=== PATIENT | female | born 1940 | race Hispanic/Latino ===

== ENCOUNTER 2025-01-11 10:05 | Day surgery (SDC) | payer MEDICARE ==
[~2025-01-11] VITALS: Ht 152.4 cm; Wt 65.8 kg
[2025-01-11] VITALS (9 sets, daily range): BP systolic 111–162; BP diastolic 45–65; PULSE 60–94; RESP 11–22; TEMP 96.7–97.3
--- NOTE | 2025-01-11 10:36 | EKG ---
[facility] Test Date: 2025-01-11 Test Time: 10:34:25 Pat Name: BAR ESCALONA Department: [facility] Room: [facility] 14 Gender: F Applications Support Engineer: [id number] : 1940 Requested By: CHARLES HA Order Number: [id number] Reading MD: Mojgan Arora Measurements Intervals Sparks Rate: 75 P: 0 VA: 0 QRS: -66 QRSD: 164 T: 112 QT: 420 QTc: 469 Interpretive Statements Ventricular paced rhythm Left axis deviation Left bundle branch block Compared to ECG 05/27/2022 14:56:02 Left-axis deviation now present Sinus bradycardia no longer present First degree AV block no longer present Electronically Signed On 01-11-2025 10:57:09 CDT by Mojgan Arora Please click the below link to view image of tracing.
[2025-01-11 10:48] LABS: APPEARANCE,URINE CLEAR (CLEAR); BILIRUBIN,URINE NEGATIVE (NEGATIVE); COLOR,URINE LIGHT-YELLOW (YELLOW); GLUCOSE, URINE (UA) NEGATIVE (NEGATIVE); KETONES,URINE NEGATIVE (NEGATIVE); LEUKOCYTE ESTERASE ,URINE 500 Leu/uL (NEGATIVE); NITRATE,URINE NEGATIVE (NEGATIVE); OCCULT BLOOD,URINE NEGATIVE (NEGATIVE); PROTEIN,URINE NEGATIVE (NEGATIVE); UROBILINOGEN,URINE 0.2 mg/dL (0.2-1.0)
[2025-01-11 10:49] LABS: BASOPHILS # (AUTO) 0.04 K/uL (0.00-0.20); BASOPHILS % (AUTO) 0.5 % (0.0-5.0); EOSINOPHILS # (AUTO) 0.11 K/uL (0.00-0.70); EOSINOPHILS % (AUTO) 1.5 % (0.0-8.0); HEMATOCRIT 39.3 % (36-48); IMMATURE GRANULOCYTE ABSOLUTE 0.02 K/uL (0-1); LYMPHOCYTES # (AUTO) 1.9 K/uL (1.0-4.8); LYMPHOCYTES % (AUTO) 25.5 % (21.0-51.0); MEAN CORPUSCULAR HEMOGLOBIN 31.3 pg (27.0-33.0); MEAN CORPUSCULAR HGB CONC 32.1 g/dL (32.0-36.0); MEAN CORPUSCULAR VOLUME 97.5 fL (79-99); MONOCYTES # (AUTO) 0.5 K/uL (0.1-1.0); MONOCYTES % (AUTO) 6.1 % (3.0-13.0); NEUTROPHILS % (AUTO) 66.1 % (40.0-77.0); PLATELET COUNT (AUTO) 199 K/uL (130-400); RED BLOOD CELL COUNT(AUTO) 4.03 MIL/uL (4.00-5.50); RED CELL DISTRIBUTION WIDTH 13.4 % (11.0-15.5); WHITE BLOOD COUNT (AUTO) 7.6 K/uL (4.8-10.8)
[2025-01-11 10:54] LABS: ADD UA MICROSCOPIC YES
[2025-01-11 10:56] LABS: CREATININE 0.9 mg/dL (0.5-1.0); POTASSIUM 3.9 mmol/L (3.5-5.1)
[2025-01-11 10:58] LABS: INR 1.05 (0.85-1.15); PROTHROMBIN TIME 11.1 SEC (9.6-11.6)
[2025-01-11 10:59] LABS: PARTIAL THROMBOPLASTIN TIME 26.9 SEC (26.3-35.5)
[2025-01-11] MEDS ORDERED: NITR0.4T50 SL (10:59)
[2025-01-11] MEDS ORDERED: CLOP75TA32 PO (10:59)
[2025-01-11] MEDS ORDERED: ASPI-1443 PO (10:59)
[2025-01-11] MEDS ORDERED: ATOR40TA69 PO (10:59)
[2025-01-11] MEDS ORDERED: LOSA50TA64 PO (10:59)
[2025-01-11 11:15] LABS: MUCUS,URINE RARE LPF (None Seen); NON-SQUAMOUS EPITHELIAL CELL 1 /HPF (0-2); RBC,URINE 0-1 /HPF (0-1); SQUAMOUS EPITHELIAL CELL,UR RARE /HPF (0-2)
[2025-01-11 11:24] LABS: B-TYPE NATRIURETIC PEPTIDE 199 pg/mL (0-100)
--- NOTE | 2025-01-11 13:29 | NUR ---
SANDRA LUCIANO SHEAR OPERATOR HELPER, NOTIFIED ABOUT PT UA RESULT OF ELEVATED WBC AND LEUKOCYTE ESTERASE. ALSO NOTIFED THAT PT HAD BREAKFAST (1/2 A TACO AND COFFEE) AND 9AM. ORDER RECIEVED FOR URINE CULTURE AT THIS TIME.
[2025-01-11] MEDS ORDERED: LIDOCAINE HCL 400MG/20ML VIAL ONE (14:26)
[2025-01-11] MEDS ORDERED: BIVALIRUDIN 250 MG/VIAL IV ONE (14:27)
[2025-01-11] MEDS ORDERED: HEParin-NS 1,000 UNIT/500 ML 1,000 ML IV ONE (14:27)
[2025-01-11] MEDS ORDERED: HEParin 10,000 UNIT/10ML (1,000 UNIT/ML) VIAL ONE (14:27)
[2025-01-11] MEDS ORDERED: NITROGLYCERIN 50MG VIAL ONE (14:28)
[2025-01-11] MEDS ORDERED: IOHEXOL-350 50ML VIAL IV ONE (14:29)
[2025-01-11] MEDS ORDERED: IOHEXOL 350 MG/ML 100ML INFUS..BTL IV ONE (14:29)
[2025-01-11] MEDS ORDERED: MIDAZOLAM HCL 1 MG/ML 2ML VIAL ONE (14:49)
[2025-01-11] MEDS ORDERED: FENTanyl CITRate PF 50 MCG/1 ML 2ML VIAL ONE (14:49)
[2025-01-11] MEDS ORDERED: 0.9%NACL 1000ML 1,000 ML IV SCH (16:00)
--- NOTE | 2025-01-11 16:15 | PRN ---
DATE OF PROCEDURE: 01/11/2025 PROCEDURE PERFORMED: LEFT HEART CATHETERIZATION, LEFT VENTRICULOGRAM, LEFT AND RIGHT SELECTIVE CORONARY ANGIOGRAM, RIGHT COMMON FEMORAL ANGIOGRAM, PERCLOSE SUTURE CLOSURE OF THE RIGHT COMMON FEMORAL ARTERY, WITH CONSCIOUS SEDATION APPLICATIONS SUPPORT ENGINEER: Charles Ha MD, [facility] INDICATION: Unstable angina/non STEMI with peak troponin of 536 with hospitalization at [facility] 01/05/2025 PROCEDURE NOTE: After informed consent was obtained the patient was prepped and draped in the usual sterile fashion. A 6 Syrian arterial sheath was inserted in the right femoral artery using a micropuncture technique with ultrasound guidance, with a front wall, first pass puncture. This was performed after fluoroscopic identification of bony landmarks to facilitate a more accurate puncture of the right common femoral artery. The arterial sheath was aspirated and flushed. A 6 Syrian pigtail catheter was then advanced over a J-tipped guidewire to the ascending aorta and was prolapsed into the left ventricle. The catheter was aspirated and flushed and pressure measurements were obtained. A left ventriculogram was then performed in a 30 VEGA projection. A pullback procedure was then performed, and this catheter was removed over a J-tipped guidewire. A 6F JL-4 was then advanced to the ascending aorta over a J-tipped guidewire, was aspirated and flushed, and was used for selective left coronary angiograms in multiple obliquities. A 6F JR-4 was advanced in a similar fashion to the ascending aorta over a J-tipped guidewire and was used for selective right coronary angiograms in multiple obliquities with findings as outlined below. A right common femoral angiogram was performed to assess suitability for Perclose suture closure and the Perclose device was deployed in standard fashion. Perclose suture closure was successful without bleeding or hematoma. The patient tolerated the procedure well and was returned to the holding area in stable condition. FINDINGS: LEFT HEART HEMODYNAMICS: The patient's LVEDP prior to LV-gram was 15 mm of mercury and after the LV-gram 11 mm of mercury. There was no aortic valve gradient on pullback procedure. LEFT VENTRICULOGRAM: A left ventriculogram in a 30 degree VEGA projection demonstrated normal LV systolic function and segmental wall motion. The LVEF was 60%. CORONARY ANGIOGRAM: LEFT MAIN: The left main coronary artery was normal and there was no dampening or ventricularization of the pressure waveform. LEFT ANTERIOR DESCENDING: The left anterior descending had a 20% proximal tubular stenosis and 40% mid tubular stenosis without evidence of thrombus or ruptured plaque. The diagonal one branch had a 40-50% proximal stenosis. The ongoing diagonal two branch was normal. LEFT CIRCUMFLEX: The left circumflex was normal without significant disease. The OM1 branch had a widely patent 3.5 x 12 mm Xience [employer] CHOLO from 12/27/2022. The OM2 was normal. RAMUS INTERMEDIATE BRANCH: There was no ramus intermediate branch. RIGHT CORONARY ARTERY: The right coronary artery was dominant and had two tandem 20% stenoses. The distal right coronary had a 40% stenosis. The PDA and posterolateral branches were normal. IMPRESSION: Unstable angina/minor non STEMI with peak troponin of 536 occurring on 01/05/2025. [place] (CT with normal/nonobstructive coronary artery disease). Normal LV systolic function and wall motion with LVEF of 60%. No aortic stenosis. No mitral regurgitation. Nonobstructive coronary artery disease with 40% mid LAD stenosis and 40% distal RCA stenosis and widely patent 3.5 x 12 mm Xience jazmine point drug-eluting stent from 12/27/2022. Unclear etiology of chest pain with troponin elevation, consider paroxysmal of atrial fibrillation. Interrogate pacemaker on return visit to assess for any atrial arrhythmia on 01/05/2025. RECOMMENDATION: Dual antiplatelet therapy for 6-12 months. Interrogate pacemaker to assess for any evidence of atrial arrhythmia occurring 01/05/2025. The patient had a remote episode of atrial fibrillation during a urinary tract infection with urinary sepsis several years ago. Continue statin therapy to target LDL less than 70. COMPLICATIONS OF PROCEDURE: None, the patient tolerated the procedure well and was returned to her room in stable condition. HEMOSTASIS: Perclose suture closure was successful without bleeding or hematoma. ESTIMATED BLOOD LOSS: Less than 10 mL. CONTRAST TOTAL: 130 mL. CHARLES HA MD Jan 11, 2025 16:15
--- NOTE | 2025-01-11 16:20 | NUR ---
md dr chino in to see pt. rt groin assessed and free from hematoma or bleeding. explained results and gave d/c instructions. no heavy lifting for 3 days and may go out after 24 hours
--- NOTE | 2025-01-11 18:45 | NUR ---
d/c d/c instructions given to pt and spouse. understanding voiced. pt in no distress and free from bleeding or hematoma to rt groin post ambulating. pt taken out via w/c. spouse at side
== END 2025-01-11 18:45 | disposition home or self-care (01) ==
LOC: DAH 10:05
PROVIDERS: ATTEND Internal Medicine Cardiovascular Disease
DX: I25.118 Atherosclerotic heart disease of native coronary artery with other forms of angina pectoris (principal); I10 Essential (primary) hypertension; E78.5 Hyperlipidemia, unspecified; I25.2 Old myocardial infarction; I44.7 Left bundle-branch block, unspecified; Z90.49 Acquired absence of other specified parts of digestive tract; Z98.890 Other specified postprocedural states; Z95.0 Presence of cardiac pacemaker; Z79.01 Long term (current) use of anticoagulants; Z79.82 Long term (current) use of aspirin; Z79.899 Other long term (current) drug therapy
CPT/HCPCS: 93458; 80048; 83880; 85025; 85610; 85730; 87086; 81001; 36415; 93005; C1894 ×2; C1760; J3010; J3490 ×2; J2250; J1644; Q9967 ×2; A4215; A4222; A4221; A4663; A4216; A4606; Q9965 ×2; A4223 ×3; 99156; 99157; J0583